=== PATIENT | female | born 2000 | race Caucasian/White ===

== ENCOUNTER → 2024-07-08 13:28 | Outpatient (REF) | payer OTHER, SELFPAY | LOC: RCS 13:28 | PROVIDERS: ATTENDING PHYSICIAN Internal Medicine Cardiovascular Disease; FAMILY PHYSICIAN Physician Assistant Medical | DX: R55 Syncope and collapse (principal) | CPT/HCPCS: 93017 ==

== ENCOUNTER → 2024-07-14 11:11 | Outpatient (REF) | payer OTHER, SELFPAY | LOC: RCS 11:11 | PROVIDERS: ATTENDING PHYSICIAN Internal Medicine Cardiovascular Disease; FAMILY PHYSICIAN Physician Assistant Medical | DX: R55 Syncope and collapse (principal) | CPT/HCPCS: 93306 ==